=== PATIENT | male | born 1975 | race Hispanic/Latino ===

== ENCOUNTER 2019-12-01 20:41 | Emergency (ER) | payer SELFPAY ==
[2019-12-01] MEDS ORDERED: TETRACAINE HCL 0.5% 4ML OPTH ONE ×2 (21:27→21:35)
[2019-12-01] MEDS ORDERED: GENTAMICIN 0.3% OPTH DROP 5ML ONE (21:36)
--- NOTE | 2019-12-01 21:41 | EDPHYS ---
Physician Documentation [facility] Name: Rangel Paulino Age: 44 yrs Sex: Male : 1975 Arrival Date: 12/01/2019 Time: 20:44 Bed 12 Private MD: ED Physician Ben Rhodes HPI: 12/01 21:26 This 44 yrs old Male presents to ER via Ambulatory with complaints of Eye jr8 Problem. 21:26 The patient is experiencing pain, redness, tearing, to the left eye. Onset: The jr8 symptoms/episode began/occurred acutely, today. Duration: the symptoms are continuous. Aggravated by opening eye, Alleviated by nothing. Associated signs and symptoms: Pertinent positives: None. Patient does not utilize any form of vision correction. Severity of symptoms: At their worst the symptoms were mild in the emergency department the symptoms are unchanged. The patient has not experienced similar symptoms in the past. The patient has not recently seen a physician. Stated that he was cleaning out his garage. Flicked his shirt to remove debris and felt something go into his eye. Has had pain since then. Thought he might see a edis of something near the center of his eye. Historical: - Allergies: 21:16 No Known Allergies; bb - Home Meds: 21:16 Metformin Oral [Active]; bb - PMHx: 21:16 Diabetes - NIDDM; bb - PSHx: 21:16 None; bb - Immunization history:: Adult Immunizations up to date. - Social history:: Smoking status: Patient/guardian denies using tobacco. - Ebola Screening: : No symptoms or risks identified at this time. ROS: 21:26 ENT: Negative for injury, pain, and discharge, Neck: Negative for injury, pain, and jr8 swelling, Cardiovascular: Negative for chest pain, palpitations, and edema, Respiratory: Negative for shortness of breath, cough, wheezing, and pleuritic chest pain, Abdomen/GI: Negative for abdominal pain, nausea, vomiting, diarrhea, and constipation, Back: Negative for injury and pain, MS/Extremity: Negative for injury and deformity, Skin: Negative for injury, rash, and discoloration, Neuro: Negative for headache, weakness, numbness, tingling, and seizure. 21:26 Eyes: Positive for pain, redness, tearing, of the left eye. Exam: 21:26 Visual Acuity: Visual acuity is within normal limits. jr8 21:26 Head/Face: Normocephalic, atraumatic. ENT: Nares patent. No nasal discharge, no septal abnormalities noted. Tympanic membranes are normal and external auditory canals are clear. Oropharynx with no redness, swelling, or masses, exudates, or evidence of obstruction, uvula midline. Mucous membranes moist. Cardiovascular: Regular rate and rhythm with a normal S1 and S2. No gallops, murmurs, or rubs. Normal PMI, no JVD. No pulse deficits. Respiratory: Lungs have equal breath sounds bilaterally, clear to auscultation and percussion. No rales, rhonchi or wheezes noted. No increased work of breathing, no retractions or nasal flaring. Abdomen/GI: Soft, non-tender, with normal bowel sounds. No distension or tympany. No guarding or rebound. No evidence of tenderness throughout. Skin: Warm, dry with normal turgor. Normal color with no rashes, no lesions, and no evidence of cellulitis. MS/ Extremity: Pulses equal, no cyanosis. Neurovascular intact. Full, normal range of motion. Neuro: Awake and alert, GCS 15, oriented to person, place, time, and situation. Cranial nerves II-XII grossly intact. Motor strength 5/5 in all extremities. Sensory grossly intact. Cerebellar exam normal. Normal gait. 21:26 Eyes: Periorbital structures: appear normal, Pupils: equal, round, and reactive to light and accomodation, Extraocular movements: intact throughout, Conjunctiva: injected, in the left eye, Corneas: foreign body, on the left, at 6 o'clock, a piece of metal, Sclera: no appreciated abnormality, Anterior chamber: normal, Lids and lashes: appear normal, Examination of the other eye reveals no obvious gross abnormality. Vital Signs: 21:16 BP 121 / 76; Pulse 73; Resp 14 S; Temp 98.3(O); Pulse Ox 98% on R/A; Weight 90.72 kg bb (R); Height 5 ft. 7 in. (170.18 cm) (R); Pain 0/10; 21:16 Body Mass Index 31.32 (90.72 kg, 170.18 cm) bb Procedures: 21:26 Eye Exam: Tetracaine. jr8 21:33 Foreign Body Removal: a metal shaving, from the left eye, cornea without use of slit jr8 lamp by needle, Dressing: none, The patient tolerated the removal well, small flec extracted from cornea without complication . MDM: 21:20 Patient medically screened. jr8 21:33 Data reviewed: vital signs, nurses notes, and as a result, I will discharge patient. jr8 Data interpreted: Pulse oximetry: on room air is 98 %. Interpretation: normal. Counseling: I had a detailed discussion with the patient and/or guardian regarding: the historical points, exam findings, and any diagnostic results supporting the discharge/admit diagnosis, the need for outpatient follow up, an opthalmologist, to return to the emergency department if symptoms worsen or persist or if there are any questions or concerns that arise at home. 21:33 ED course: Explained to patient that he still needs to f/u with ophthalmology as there jr8 could still be retained substance. Will put on Abx drops. Patient good with this and knows to come back if worse . 12/01 21:41 Order name: Eye Tray; Complete Time: 21:41 bb Administered Medications: 21:34 Drug: Tetracaine Drops 0.5 % 1 drops Route: Ophthalmic; Site: left eye; bb 21:42 Follow up: Response: No adverse reaction bb 21:41 Drug: Gentamicin Drops 0.3 % 2 drops Route: Ophthalmic; Site: left eye; bb 21:42 Follow up: Response: No adverse reaction bb Disposition: 12/02 08:30 Co-signature as Attending Physician, Ben Rhodes MD I agree with the assessment and blayne plan of care. Disposition: 12/01/19 21:41 Discharged to Home. Impression: Foreign body in cornea, left eye. - Condition is Stable. - Discharge Instructions: Eye Foreign Body. - Prescriptions for Gentamicin 0.3 % Ophthalmic Drops - instill 2 drops by OPHTHALMIC route every 4 hours for 7 days; 1 bottle. - Medication Reconciliation Form, Thank You Letter, Antibiotic Education, Prescription Opioid Use form. - Follow up: Julio Ortiz MD; When: 1 - 2 days; Reason: Recheck today's complaints, Continuance of care, Re-evaluation by your physician. - Problem is new. - Symptoms have improved. Signatures: Ben Rhodes MD MD cha Ballard, Brenda, RN RN bb Israel Healy PA PA jr8 Corrections: (The following items were deleted from the chart) 12/01 21:50 21:41 12/01/2019 21:41 Discharged to Home. Impression: Foreign body in cornea, left bb eye. Condition is Stable. Forms are Medication Reconciliation Form, Thank You Letter, Antibiotic Education, Prescription Opioid Use. Follow up: Julio Ortiz; When: 1 - 2 days; Reason: Recheck today's complaints, Continuance of care, Re-evaluation by your physician. Problem is new. Symptoms have improved. jr8
--- NOTE | 2019-12-01 21:41 | ER ---
Nurse's Notes [facility] Name: Rangel Paulino Age: 44 yrs Sex: Male : 1975 Arrival Date: 12/01/2019 Time: 20:44 Bed 12 Private MD: Diagnosis: Foreign body in cornea, left eye Presentation: 12/01 21:15 Presenting complaint: Patient states: he thinks he has a foreign body in left eye after bb lifting a garage door today. Transition of care: patient was not received from another setting of care. Onset of symptoms was December 01, 2019. Risk Assessment: Do you want to hurt yourself or someone else? Patient reports no desire to harm self or others. Initial Sepsis Screen: Does the patient meet any 2 criteria? No. Patient's initial sepsis screen is negative. Does the patient have a suspected source of infection? No. Patient's initial sepsis screen is negative. Care prior to arrival: None. 21:15 Method Of Arrival: Ambulatory bb 21:15 Acuity: ALISSA 4 bb Triage Assessment: 21:16 General: Appears in no apparent distress. Behavior is calm, cooperative. Pain: Denies bb pain. EENT: Eyes clear no redness or discharge . Reports foreign body in left eye. Neuro: Level of Consciousness is awake, alert, obeys commands, Oriented to person, place, time, situation. Cardiovascular: No deficits noted. Respiratory: Respiratory effort is even, unlabored. Musculoskeletal: Circulation, motion, and sensation intact. Historical: - Allergies: 21:16 No Known Allergies; bb - Home Meds: 21:16 Metformin Oral [Active]; bb - PMHx: 21:16 Diabetes - NIDDM; bb - PSHx: 21:16 None; bb - Immunization history:: Adult Immunizations up to date. - Social history:: Smoking status: Patient/guardian denies using tobacco. - Ebola Screening: : No symptoms or risks identified at this time. Screenin:19 Abuse screen: Denies threats or abuse. Nutritional screening: No deficits noted. bb Tuberculosis screening: No symptoms or risk factors identified. Fall Risk None identified. Assessment: 21:19 Reassessment: No changes from previously documented assessment. see triage assessment. bb Vital Signs: 21:16 BP 121 / 76; Pulse 73; Resp 14 S; Temp 98.3(O); Pulse Ox 98% on R/A; Weight 90.72 kg bb (R); Height 5 ft. 7 in. (170.18 cm) (R); Pain 0/10; 21:16 Body Mass Index 31.32 (90.72 kg, 170.18 cm) bb ED Course: 20:44 Patient arrived in ED. cf2 21:16 Triage completed. bb 21:16 Arm band placed on Patient placed in an exam room, on a stretcher, on pulse oximetry. bb Family accompanied patient. 21:19 Patient has correct armband on for positive identification. Adult w/ patient. bb 21:20 Israel Healy PA is PHCP. jr8 21:20 Ben Rhodes MD is Attending Physician. jr8 21:41 Julio Ortiz MD is Referral Physician. jr8 21:41 Assist provider with eye exam of left eye. using abreu lamp Performed by Israel LOPEZ bb Patient tolerated well. 21:50 Patient did not have IV access during this emergency room visit. bb Administered Medications: 21:34 Drug: Tetracaine Drops 0.5 % 1 drops Route: Ophthalmic; Site: left eye; bb 21:42 Follow up: Response: No adverse reaction bb 21:41 Drug: Gentamicin Drops 0.3 % 2 drops Route: Ophthalmic; Site: left eye; bb 21:42 Follow up: Response: No adverse reaction bb Outcome: 21:41 Discharge ordered by . jr8 21:49 Discharged to home ambulatory, with family. bb 21:49 Condition: stable 21:49 Discharge instructions given to patient, Instructed on discharge instructions, follow up and referral plans. medication usage, Demonstrated understanding of instructions, follow-up care, medications, Prescriptions given X 1. 21:50 Patient left the ED. bb Signatures: Pricilla Torrez RN RN bb Israel Healy PA PA jr8 Biju Sheldon cf2
== END 2019-12-01 21:50 | disposition home or self-care (01) ==
LOC: ER 20:41
PROC: 08C9XZZ Extirpation of Matter from Left Cornea, External Approach (ICD-10-PCS; principal; 2019-12-01)
DX: T15.02XA Foreign body in cornea, left eye, initial encounter (principal); E11.9 Type 2 diabetes mellitus without complications
CPT/HCPCS: 99284